=== PATIENT | female | born 2000 | race Caucasian/White ===

== ENCOUNTER 2020-06-12 18:10 | Emergency (ER) | payer BC, SELFPAY ==
[2020-06-12 18:28] VITALS: BP 104/63; PULSE 95; RESP 20; TEMP 37.2; O2SAT 100
--- NOTE | 2020-06-12 18:42 | ED.URI ---
HPI - URI/Sore Throat General Chief Complaint: Upper Respiratory Infection Stated Complaint: sore throat Time Seen by Provider: 06/12/20 18:13 Source: patient Mode of arrival: ambulatory Limitations: no limitations History of Present Illness HPI Narrative: 19-year-old female presents to urgent care with complaints of sore throat and runny nose since this morning. Patient has not tried taking any [id number] medications for her symptoms. Patient had tonsils removed in the past. Patient denies fever, vies, chills, cough, runny nose, shortness of breath or wheezing. Patient denies sick contacts. Patient denies recent travel MD elicited complaint: sore throat and rhinorrhea Onset (ago): hour(s) (12) Consistency: constant Severity: mild Able to tolerate fluids by mouth: Yes Exacerbating factors: nothing Relieving factors: nothing Related Data Allergies Allergy/AdvReac Type Severity Reaction Status Date / Time No Known Allergies Allergy Verified 06/12/20 18:31 Review of Systems Constitutional: Constitutional: Denies chills, Denies fatigue, Denies fever(s) and Denies weakness ENT: Denies dysphagia, Denies vertigo, Denies dizziness, Denies nasal congestion and Reports sore throat Comments: runny nose Cardiovascular: Cardiovascular: Denies no additional cardiovascular complaints, Denies chest pain, Denies rapid heart rate and Denies radiating jaw, neck or arm pain Respiratory: Respiratory: Denies chest congestion, Denies cough, Denies dyspnea and Denies wheezing Gastrointestinal: Gastrointestinal: Denies abdominal pain, Denies constipation, Denies diarrhea, Denies nausea and Denies vomiting Integumentary/Breasts: Skin/Breast: Denies rash Neurologic: Denies syncope, Denies headache(s), Denies focal weakness and Denies numbness PMFSH Past Medical History Medical History (Updated 06/12/20 @ 18:47 by Niesha Vazquez APRN) Tonsillectomy planned Surgical History Surgical History (Updated 06/12/20 @ 18:44 by Niesha Vazquez APRN) [place] teeth extracted Social History Social History (Updated 06/12/20 @ 18:44 by Niesha Vazquez APRN) Smoking status: Current every day smoker Exam Const: General: healthy appearing, no acute distress and alert Orientation/consciousness: patient oriented x3 HENMT: General nose exam: Normal external nose present and Normal nares present Face and sinus: normal facial exam Mouth: Yes lip normal and Yes moist mucous membranes Teeth and gingiva: dentition normal Throat: uvula midline Other: Tonsils absent. There is mild amount of clear postnasal drainage noted. No erythema, swelling, ulcerations noted to posterior pharynx. Neck: Neck: normal visual inspection and no lymphadenopathy Resp: Effort & Inspection: normal respiratory effort, not labored and not tachypneic Auscultation: clear to auscultation bilaterally Cardio: Rate: regular rate, not bradycardic and not tachycardic Rhythm: regular rhythm Skin: General skin exam: normal color, no jaundice and no pallor Rashes: no rashes Neuro: General: patient oriented x3, moves all extremities and no meningeal signs Psych: Appearance: grossly normal Mental Status: mental status grossly normal Affect: normal affect Thought content: Yes Normal thought content present Course Vital Signs Vital signs: Vital Signs Temperature 37.2 C 06/12/20 18:28 Pulse Rate 95 06/12/20 18:28 Respiratory Rate 20 06/12/20 18:28 Blood Pressure 104/63 06/12/20 18:28 Pulse Oximetry 100 06/12/20 18:28 Temperature 37.2 C 06/12/20 18:28 Pulse Rate 95 06/12/20 18:28 Respiratory Rate 20 06/12/20 18:28 Blood Pressure 104/63 06/12/20 18:28 Pulse Oximetry 100 06/12/20 18:28 MDM - URI/Sore Throat MDM Narrative Medical decision making narrative: Negative strep results discussed with patient. Patient agrees to take Claritin as prescribed. Throat culture obtained and sent to lab. Patient agreed to take Motrin and
== END 2020-06-12 18:54 | disposition home or self-care (01) ==
PROVIDERS: Emergency Provider Nurse Practitioner Family
DX: J02.9 Acute pharyngitis, unspecified (principal); F17.200 Nicotine dependence, unspecified, uncomplicated
CPT/HCPCS: 87081; 87880; 99203; G0463